=== PATIENT | female | born 1985 | race Caucasian/White ===

== ENCOUNTER 2017-03-10 12:49 | Emergency (ER) | payer OTHER, MEDICARE ==
[2017-03-10 17:07] LABS: HEMOGLOBIN 13.2 gm/dl (12.3-15.3); RED BLOOD COUNT 3.95 M/UL (4.00-5.10); WHITE BLOOD COUNT 18.9 K/UL (4.5-11.0)
[2017-03-10 17:27] LABS: BUN/CREATININE RATIO 12 (0-10)
== END 2017-03-10 22:10 | disposition home or self-care (01) ==
LOC: ER1 12:49
PROVIDERS: Physician Assistant
DX: O21.0 Mild hyperemesis gravidarum (principal); O99.89 Other specified diseases and conditions complicating pregnancy, childbirth and the puerperium; R10.9 Unspecified abdominal pain; D72.829 Elevated white blood cell count, unspecified; Z88.2 Allergy status to sulfonamides; Z3A.01 Less than 8 weeks gestation of pregnancy
CPT/HCPCS: 36415; 76817; 80053; 81001; 84702; 85025; 96361; 96374; 99284; J2550; J7030

== ENCOUNTER → 2020-11-09 | Outpatient (CLI) | payer BC, OTHER ==
[~2020-11-09] MED LIST: BENTYL 20MG TAB20 MG PO; IBUPROFEN800 MG PO; OMEPRAZOLE20 M1 PO; OMNICEF 300 MG300 MG PO; ZOFRAN ODT 4 MG4 MG PO
== END ==
LOC: SLEEP-COR 21:30
DX: G47.33 Obstructive sleep apnea (adult) (pediatric) (principal); G47.00 Insomnia, unspecified; G47.10 Hypersomnia, unspecified
CPT/HCPCS: 95810

== ENCOUNTER → 2021-04-02 | Outpatient (CLI) | payer BC, OTHER | LOC: RAD 07:35 → NM 09:00 | DX: R13.10 Dysphagia, unspecified (principal); R10.9 Unspecified abdominal pain | CPT/HCPCS: 74220 ==

== ENCOUNTER → 2021-04-27 | Outpatient (CLI) | payer BC, OTHER | LOC: NM 08:45 | DX: R10.9 Unspecified abdominal pain (principal) | CPT/HCPCS: 78264; A9541 ==

== ENCOUNTER → 2021-07-20 | Outpatient (CLI) | payer BC ==
[2021-07-23 16:11] LABS: ENDOMYSIAL ANTIBODY IGA Negative (Negative); IMMUNOGLOBULIN A, QN, SERUM 407 mg/dL (87-352); T-TRANSGLUTAMINASE (TTG) IGA <2 U/mL (0-3); T-TRANSGLUTAMINASE (TTG) IGG 7 U/mL (0-5)
== END ==
LOC: LAB 07:58
PROVIDERS: Physician Assistant
DX: K29.70 Gastritis, unspecified, without bleeding (principal); D72.10 Eosinophilia, unspecified; K59.04 Chronic idiopathic constipation
CPT/HCPCS: 36415; 82784

== ENCOUNTER → 2021-09-19 | Outpatient (CLI) | payer BC ==
[2021-09-21 16:13] LABS: AMPHETAMINES, URINE Negative ng/mL (Cutoff=1000); BARBITURATE Negative ng/mL (Cutoff=200); BENZODIAZEPINES Negative ng/mL (Cutoff=200); CANNABINOIDS Negative ng/mL (Cutoff=20); COCAINE (METABOLITE) Negative ng/mL (Cutoff=300); CREATININE 154.8 mg/dL (20.0-300.0); MEPERIDINE Negative ng/mL (Cutoff=200); METHADONE Negative ng/mL (Cutoff=300); OPIATES Negative ng/mL (Cutoff=300); PHENCYCLIDINE Negative ng/mL (Cutoff=25); PROPOXYPHENE Negative ng/mL (Cutoff=300)
== END ==
LOC: LAB 08:18
PROVIDERS: Nurse Practitioner Family
DX: R41.840 Attention and concentration deficit (principal); F50.81 Binge eating disorder; Z79.899 Other long term (current) drug therapy
CPT/HCPCS: 80307

== ENCOUNTER 2021-12-06 19:47 | Emergency (ER) | payer BC ==
[2021-12-06 20:53] LABS: HEMOGLOBIN 13.6 gm/dl (12.3-15.3); RED BLOOD COUNT 4.17 M/UL (4.00-5.10); WHITE BLOOD COUNT 12.2 K/UL (4.5-11.0)
[2021-12-06 21:06] LABS: BUN/CREATININE RATIO 13 (0-10)
== END 2021-12-07 01:50 | disposition home or self-care (01) ==
LOC: ER1 19:47
PROVIDERS: Physician Assistant
DX: R51.9 Headache, unspecified (principal); Z88.2 Allergy status to sulfonamides; Z88.8 Allergy status to other drugs, medicaments and biological substances
CPT/HCPCS: 70450; 80048; 85025; 96374; 96375; 99284; J1200; J1885; J2765; J7030